=== PATIENT | female | born 1965 | race Caucasian/White ===

== ENCOUNTER 2017-02-09 09:46 | Outpatient (CLI) | payer OTHER ==
[~2017-02-09 09:46] MED LIST: IBUPROFEN400 MG PO
--- NOTE | 2017-02-09 10:22 | DIAGNOSTIC IMAGING REPORT ---
PROCEDURE: DEXA BONE DENSITY STUDY CLINICAL INDICATION: Screening, perimenopausal COMPARISON: None. FINDINGS: LUMBAR SPINE: Bone mineral density 0.952 g/cm2, T score -0.9, low normal LEFT HIP: Bone mineral density 0.979 g/cm2, T score 0.3, normal. LEFT FEMORAL NECK: Bone mineral density 0.734 g/cm2, T score -1.0, low normal FRACTURE RISK CALCULATION ( when applicable): 10-year fracture risk of a major osteoporotic fracture not calculated because all T scores are at or above -1.0. (T score greater or equal to -1.0 to: NORMAL) (T score from -1.1 to -2.4: OSTEOPENIA) (T score ess than or equal to -2.5: OSTEOPOROSIS) IMPRESSION: 1. Low normal to normal bone mineral density. 2. No increased risk of fracture.
--- NOTE | 2017-02-09 13:33 | DIAGNOSTIC IMAGING REPORT ---
PROCEDURE: MG BILATERAL SCREENING W/CAD INDICATION: SCREENING TECHNIQUE: Standard CC and MLO views bilaterally. Computer aided detection was used. COMPARISON: 09/08/2015, 07/31/2012, 04/30/2010 FINDINGS: Mild to moderately dense fibroglandular tissue is present bilaterally. No developing densities, areas of architectural distortion, or suspicious microcalcifications. IMPRESSION: 1. Stable mammograms without radiographic evidence of malignancy. RESULT CODE: 1- Negative. A. A negative report should not delay biopsy if a dominant or clinically suspicious mass is present. 10-15% of cancers are not identified by x-ray. B. A negative report may reinforce clinical impression. C. Adenosis and dense breasts may obscure an underlying neoplasm. D. False positive reports average 6-10%. E.. A yearly screening mammogram is recommended. A reminder letter will be scheduled.
== END 2017-02-09 21:30 | disposition home or self-care (01) ==
LOC: XR SRH 09:46 → MAM SRH 14:00 → XR SRH 14:30
DX: Z12.31 Encounter for screening mammogram for malignant neoplasm of breast (principal); Z13.820 Encounter for screening for osteoporosis